=== PATIENT | female | born 1990 | race Caucasian/White ===

== ENCOUNTER 2017-12-28 08:11 | Emergency (ER) | payer BC ==
[2017-12-28 08:43] LABS: Amorphous Sediment,Urine Rare /hpf; Appearance,Urine Cloudy (Clear); Bacteria,Urine Rare /hpf; Bilirubin,Urine Negative (Negative); Blood,Urine Negative (Negative); Color,Urine Yellow; Glucose,Urine (UA) Negative (Negative); Ketones,Urine Negative (Negative); Leukocyte Esterase,Urine Negative (Negative); Mucus,Urine Few /hpf; Nitrite,Urine Negative (Negative); PH, Urine 5.5 (5.0-8.0); Protein,Urine Trace (Negative); Specific Gravity,Urine 1.024 (1.001-1.035); Squamous Epithelial Cell,Urine 4 /hpf (0-4); Urobilinogen,Urine <2.0 mg/dL (<2.0); WBC,Urine 2 /hpf (0-5)
[2017-12-28 08:49] LABS: Basophils # (A) 0.1 k/uL (0-0.2); Basophils % (A) 1 %; Eosinophils # (A) 0.2 k/uL (0-0.7); Eosinophils % (A) 2 %; HCT 42.1 % (34.0-46.0); HGB 14.7 gm/dL (11.4-16.0); Lymphocytes # (A) 2.7 k/uL (1.0-4.8); Lymphocytes % (A) 28 %; MCH 28.5 pg (25.0-35.0); MCV 81.6 fL (80.0-100.0); Mean Platelet Volume 7.5; Monocytes # (A) 0.3 k/uL (0-1.0); Monocytes % (A) 4 %; Neutrophils # (A) 6.2 k/uL (1.3-7.7); Neutrophils % (A) 64 %; Platelet Count 264 k/uL (150-450); RBC 5.16 m/uL (3.80-5.40); RDW 12.4 % (11.5-15.5); WBC 9.6 k/uL (3.8-10.6)
--- NOTE | 2017-12-28 08:51 | ED ---
General Adult HPI - General Chief complaint: Abdominal Pain Stated complaint: abdominal and back pain Time Seen by Provider: 12/28/17 08:22 Source: patient, RN notes reviewed Mode of arrival: ambulatory Limitations: no limitations - History of Present Illness Initial comments: Patient 27-year-old female significant past medical history for IBS, presenting today with a chief complaint of abdominal discomfort. Patient does admit that she's had similar symptoms in the past but seems to just be increasingly getting worse. She states pain over the last several months. She states that pain is worse than the left side of the abdomen also feels some pain to the left side of the back at times. Patient does admit to loose bowel movements. Denies any signs of blood. Does not that she feels nauseated at times but no vomiting. States she follows up through family doctors never seen a specialist for this. She states that she's used Imodium in the past along with Bentyl with some relief the symptoms. Patient denies any recent fever, chills, shortness of breath, chest pain, back pain, vomiting, numbness or tingling, dysuria or hematuria, headaches or visual changes, or any other complaints. - Related Data Home Medications Medication Instructions Recorded Confirmed Norgestimate-Ethinyl Estradiol 1 tab PO HS 07/06/16 12/28/17 [Sprintec 28 Day Tablet] Previous Rx's Medication Instructions Recorded Dicyclomine [Bentyl] 20 mg PO QID #20 tablet 12/28/17 Allergies Allergy/AdvReac Type Severity Reaction Status Date / Time No Known Allergies Allergy Verified 12/28/17 08:24 Review of Systems ROS Statement: Those systems with pertinent positive or pertinent negative responses have been documented in the HPI. ROS Other: All systems not noted in ROS Statement are negative. Past Medical History Past Medical History: No Reported History History of Any Multi-Drug Resistant Organisms: None Reported Past Surgical History: Cholecystectomy Past Psychological History: Anxiety Smoking Status: Never smoker Past Alcohol Use History: None Reported Past Drug Use History: None Reported General Exam - General Exam Comments Initial Comments: General: The patient is awake and alert, in no distress, and does not appear acutely ill. Eye: Pupils are equal, round and reactive to light, extra-ocular movements are intact. No nystagmus. There is normal conjunctiva bilaterally. No signs of icterus. Ears, nose, mouth and throat: There are moist mucous membranes and no oral lesions. Neck: The neck is supple, there is no tenderness or JVD. Cardiovascular: There is a regular rate and rhythm. No murmur, rub or gallop is appreciated. Respiratory: Lungs are clear to auscultation, respirations are non-labored, breath sounds are equal. No wheezes, stridor, rales, or rhonchi. Gastrointestinal: Normal appearance the abdomen. Abdomen soft on palpation. Mild discomfort left side on palpation. Mild left CVA tenderness. No rebound tenderness. No guarding. Musculoskeletal: Normal ROM, no tenderness. Strength 5/5. Sensation intact. Pulses equal bilaterally 2+. Neurological: A&O x 3. CN II-XII intact, There are no obvious motor or sensory deficits. Coordination appears grossly intact. Speech is normal. Skin: Skin is warm and dry and no rashes or lesions are noted. Psychiatric: Cooperative, appropriate mood & affect, normal judgment. Limitations: no limitations Course Vital Signs 12/28/17 08:14 Temperature 97.8 F Pulse Rate 104 H Respiratory 20 Rate Blood Pressure 140/92 O2 Sat by Pulse 100 Oximetry Medical Decision Making - Medical Decision Making X-rays have been reviewed are unremarkable. Patient's labs are within normal limits. Patient's symptoms have been a slow progression over the last few months. She admits to history of IBS. Does not see GI. In the past she's used Bentyl with some relief the symptoms. At this time options were discussed about CAT scan. Patient will be discharged home to follow-up with her family doctor and GI. Her abdomen is soft on palpation. Vitals are stable. Will be given a prescription of Bentyl to use for symptoms. Advised return if any symptoms increase worsen. - Lab Data Result diagrams: 12/28/17 08:38 12/28/17 08:38 Lab Results 12/28/17 12/28/17 12/28/17 Range/Units 08:30 08:30 08:38 WBC 9.6 (3.8-10.6) k/uL RBC 5.16 (3.80-5.40) m/uL Hgb 14.7 (11.4-16.0) gm/dL Hct 42.1 (34.0-46.0) % MCV 81.6 (80.0-100.0) fL MCH 28.5 (25.0-35.0) pg MCHC 35.0 (31.0-37.0) g/dL RDW 12.4 (11.5-15.5) % Plt Count 264 (150-450) k/uL Neutrophils % 64 % Lymphocytes % 28 % Monocytes % 4 % Eosinophils % 2 % Basophils % 1 % Neutrophils # 6.2 (1.3-7.7) k/uL Lymphocytes # 2.7 (1.0-4.8) k/uL Monocytes # 0.3 (0-1.0) k/uL Eosinophils # 0.2 (0-0.7) k/uL Basophils # 0.1 (0-0.2) k/uL Sodium (137-145) mmol/L Potassium (3.5-5.1) mmol/L Chloride (98-107) mmol/L Carbon Dioxide (22-30) mmol/L Anion Gap mmol/L BUN (7-17) mg/dL Creatinine (0.52-1.04) mg/dL Est GFR (CKD-EPI)AfAm (>60 ml/min/1.73 sqM) Est GFR (CKD-EPI)NonAf (>60 ml/min/1.73 sqM) Glucose (74-99) mg/dL Calcium (8.4-10.2) mg/dL Total Bilirubin (0.2-1.3) mg/dL AST (14-36) U/L ALT (9-52) U/L Alkaline Phosphatase (38-126) U/L Total Protein (6.3-8.2) g/dL Albumin (3.5-5.0) g/dL Lipase (23-300) U/L Urine Color Yellow Urine Appearance Cloudy H (Clear) Urine pH 5.5 (5.0-8.0) Ur Specific [place] 1.024 (1.001-1.035) Urine Protein Trace H (Negative) Urine Glucose (UA) Negative (Negative) Urine Ketones Negative (Negative) Urine Blood Negative (Negative) Urine Nitrite Negative (Negative) Urine Bilirubin Negative (Negative) Urine Urobilinogen <2.0 (<2.0) mg/dL Ur Leukocyte Esterase Negative (Negative) Urine WBC 2 (0-5) /hpf Ur Squamous Epith Cells 4 (0-4) /hpf Amorphous Sediment Rare H (None) /hpf Urine Bacteria Rare H (None) /hpf Urine Mucus Few H (None) /hpf Urine HCG, Qual Not Detected (Not Detectd) 12/28/17 Range/Units 08:38 WBC (3.8-10.6) k/uL RBC (3.80-5.40) m/uL Hgb (11.4-16.0) gm/dL Hct (34.0-46.0) % MCV (80.0-100.0) fL MCH (25.0-35.0) pg MCHC (31.0-37.0) g/dL RDW (11.5-15.5) % Plt Count (150-450) k/uL Neutrophils % % Lymphocytes % % Monocytes % % Eosinophils % % Basophils % % Neutrophils # (1.3-7.7) k/uL Lymphocytes # (1.0-4.8) k/uL Monocytes # (0-1.0) k/uL Eosinophils # (0-0.7) k/uL Basophils # (0-0.2) k/uL Sodium 142 (137-145) mmol/L Potassium 4.4 (3.5-5.1) mmol/L Chloride 104 (98-107) mmol/L Carbon Dioxide 27 (22-30) mmol/L Anion Gap 11 mmol/L BUN 12 (7-17) mg/dL Creatinine 0.76 (0.52-1.04) mg/dL Est GFR (CKD-EPI)AfAm >90 (>60 ml/min/1.73 sqM) Est GFR (CKD-EPI)NonAf >90 (>60 ml/min/1.73 sqM) Glucose 105 H (74-99) mg/dL Calcium 9.6 (8.4-10.2) mg/dL Total Bilirubin 0.7 (0.2-1.3) mg/dL AST 32 (14-36) U/L ALT 25 (9-52) U/L Alkaline Phosphatase 97 (38-126) U/L Total Protein 7.8 (6.3-8.2) g/dL Albumin 4.4 (3.5-5.0) g/dL Lipase 133 (23-300) U/L Urine Color Urine Appearance (Clear) Urine pH (5.0-8.0) Ur Specific [place] (1.001-1.035) Urine Protein (Negative) Urine Glucose (UA) (Negative) Urine Ketones (Negative) Urine Blood (Negative) Urine Nitrite (Negative) Urine Bilirubin (Negative) Urine Urobilinogen (<2.0) mg/dL Ur Leukocyte Esterase (Negative) Urine WBC (0-5) /hpf Ur Squamous Epith Cells (0-4) /hpf Amorphous Sediment (None) /hpf Urine Bacteria (None) /hpf Urine Mucus (None) /hpf Urine HCG, Qual (Not Detectd) Disposition Clinical Impression: Acute diarrhea Disposition: HOME SELF-CARE Condition: Good Instructions: Acute Diarrhea (ED) Additional Instructions: Please use medication as discussed. Please follow-up with GI/family doctor in the next 2 days of symptoms have not improved. Please return to emergency room if the symptoms increase or worsen or for any other concerns. Prescriptions: Dicyclomine [Bentyl] 20 mg PO QID #20 tablet Referrals: Shannon Herbert MD [Primary Care Provider] - 1-2 days Davidson Blackwell MD [STAFF PHYSICIAN] - 1-2 days Time of Disposition: 09:45
[2017-12-28 08:58] LABS: Albumin 4.4 g/dL (3.5-5.0); Anion Gap 11 mmol/L; Calcium 9.6 mg/dL (8.4-10.2); Carbon Dioxide 27 mmol/L (22-30); Chloride 104 mmol/L (98-107); Glucose 105 mg/dL (74-99); Lipase 133 U/L (23-300); Sodium 142 mmol/L (137-145); Total Bilirubin 0.7 mg/dL (0.2-1.3); Total Protein 7.8 g/dL (6.3-8.2)
[2017-12-28 09:03] LABS: ALT 25 U/L (9-52); AST 32 U/L (14-36); Alkaline Phosphatase 97 U/L (38-126); Blood Urea Nitrogen 12 mg/dL (7-17); Potassium 4.4 mmol/L (3.5-5.1)
--- NOTE | 2017-12-28 09:25 | XR ---
EXAMINATION TYPE: XR KUB DATE OF EXAM: 12/28/2017 COMPARISON: 07/06/2016 HISTORY: Pain TECHNIQUE: One view abdominal series FINDINGS: The osseous structures are intact. The bowel gas pattern is nonspecific. Lung bases are clear. Surg ical clips in the right upper quadrant are noted. IMPRESSION: 1. Nonspecific abdomen.
[2017-12-28 09:57] VITALS: BP 126/78; PULSE 78; RESP 16; TEMP 98
== END 2017-12-28 09:56 | disposition home or self-care (01) ==
LOC: EC 08:11
DX: R19.7 Diarrhea, unspecified (principal); R10.9 Unspecified abdominal pain; M54.9 Dorsalgia, unspecified; R11.0 Nausea; Z79.3 Long term (current) use of hormonal contraceptives; Z90.49 Acquired absence of other specified parts of digestive tract
CPT/HCPCS: 36415; 74018; 80053; 81001; 81025; 83690; 85025; 99284

== ENCOUNTER → 2020-04-16 | Outpatient (CLI) | payer BC ==
[2020-04-16 11:25] LABS: HGB 12.5 gm/dL (11.4-16.0); Hypochromasia Slight; MCH 27.5 pg (25.0-35.0); MCV 85.8 fL (80.0-100.0); Mean Platelet Volume 8.5; Platelet Count 238 k/uL (150-450); RBC 4.54 m/uL (3.80-5.40); RDW 13.9 % (11.5-15.5); WBC 14.9 k/uL (3.8-10.6)
== END | disposition home or self-care (01) ==
LOC: LABWHC1 09:58
PROVIDERS: ATTEND Obstetrics & Gynecology
DX: Z34.02 Encounter for supervision of normal first pregnancy, second trimester (principal)
CPT/HCPCS: 36415; 82950; 85027

== ENCOUNTER → 2020-04-23 | Outpatient (CLI) | payer BC ==
[2020-04-23 12:36] LABS: Glucose 3 Hour, Gest 130 mg/dL
== END | disposition home or self-care (01) ==
LOC: LABWHC1 07:42
PROVIDERS: ATTEND Obstetrics & Gynecology
DX: O99.810 Abnormal glucose complicating pregnancy (principal); Z3A.00 Weeks of gestation of pregnancy not specified
CPT/HCPCS: 36415; 82951; 82952

== ENCOUNTER → 2020-05-07 | Outpatient (CLI) | payer BC ==
[2020-05-07 13:29] VITALS: BMI 36.9
== END | disposition home or self-care (01) ==
LOC: DBWHC3 08:59
PROVIDERS: ATTEND Obstetrics & Gynecology
DX: O24.419 Gestational diabetes mellitus in pregnancy, unspecified control (principal); Z3A.00 Weeks of gestation of pregnancy not specified
CPT/HCPCS: G0108 ×2

== ENCOUNTER → 2020-06-09 | Outpatient (CLI) | payer BC ==
[2020-06-09 16:52] LABS: Appearance,Urine Clear (Clear); Bacteria,Urine Rare /hpf; Bilirubin,Urine Negative (Negative); Blood,Urine Negative (Negative); Color,Urine Light Yellow; Glucose,Urine (UA) Negative (Negative); Ketones,Urine Negative (Negative); Leukocyte Esterase,Urine Moderate (Negative); Mucus,Urine Rare /hpf; Nitrite,Urine Negative (Negative); Protein,Urine Negative (Negative); RBC,Urine 1 /hpf (0-5); Specific Gravity,Urine 1.012 (1.001-1.035); Squamous Epithelial Cell,Urine 3 /hpf (0-4); Urobilinogen,Urine <2.0 mg/dL (<2.0); WBC,Urine 5 /hpf (0-5)
[2020-06-09 17:09] LABS: Creatinine,Urine Random 69.3 mg/dL
[2020-06-09 17:10] LABS: Protein/Creatinine Ratio,Urine 0.146
[2020-06-09 17:26] LABS: Basophils % (A) 0 %; Eosinophils # (A) 0.1 k/uL (0-0.7); Eosinophils % (A) 1 %; HCT 35.5 % (34.0-46.0); HGB 11.4 gm/dL (11.4-16.0); Lymphocytes # (A) 1.8 k/uL (1.0-4.8); Lymphocytes % (A) 16 %; MCH 25.9 pg (25.0-35.0); MCHC 32.2 g/dL (31.0-37.0); Mean Platelet Volume 9.8; Monocytes # (A) 0.6 k/uL (0-1.0); Monocytes % (A) 5 %; Neutrophils # (A) 8.9 k/uL (1.3-7.7); Neutrophils % (A) 77 %; Platelet Count 196 k/uL (150-450); RBC 4.42 m/uL (3.80-5.40); RDW 13.9 % (11.5-15.5); WBC 11.6 k/uL (3.8-10.6)
[2020-06-09 17:30] LABS: ALT 11 U/L (4-34); AST 23 U/L (14-36); African American GFR (CKD) >90 (>60 ml/min/1.73 sqM); Blood Urea Nitrogen 7 mg/dL (7-17); Non-African American GFR(CKD) >90 (>60 ml/min/1.73 sqM); Uric Acid 4.3 mg/dL (3.7-7.4)
[2020-06-09 17:31] LABS: LDH 455 U/L (313-618)
[2020-06-09 17:48] LABS: MCV 80.3 fL (80.0-100.0)
[2020-06-09 18:22] VITALS: BP 140/84; PULSE 115; RESP 16; TEMP 97.6
--- NOTE | 2020-06-10 06:39 | P.MSEPDOC ---
Presenting Problems - Arrival Data Date of Arrival on Unit: 06/09/20 Time of Arrival on Unit: 15:52 Mode of Transport: Ambulatory - Complaint OB-Reason for Admission/Chief Complaint: PIH Medical History - Information : 1 Para: 0 Term: 0 : 0 Abortions: Spontaneous or Elective: 0 Number of Living Children: 0 - Gestational Age Gestational Age by THERESA (wks/days): 34 Weeks and 3 Days - History Complications: GDM Review of Systems - Review of Systems Constitutional: No problems Breast: No problems ENT: No problems Cardiovascular: No problems Respiratory: No problems Gastrointestinal: No problems Genitourinary: No problems Musculoskeletal: No problems Neurological: No problems Skin: No problems Vital Signs - Temperature Temperature: 97.6 F Temperature Source: Temporal Artery Scan - Pulse Right Sitting Pulse Rate: 115 Pulse Assessment Method: Auscultation - Respirations Respiratory Rate: 16 Oxygen Delivery Method: Room Air - Blood Pressure Right Arm Blood Pressure: 140/84 Blood Pressure Mean: 102 Blood Pressure Source: Automatic Cuff Medical Screen Scoring (Pre) - Cervical Exam Dilation: Exam Deferred Effacement: Exam Deferred - Uterine Contractions Frequency: > 5 minutes apart = 1 - Maternal Vital Signs Maternal Temperature: N/A Maternal Blood Pressure: Systolic >139 = 2 Signs of Preeclampsia: N/A Maternal Respirations: N/A - Maternal Trauma Maternal Trauma: N/A - Assessment - Baby A Baseline FHR: 150 Heart Rate - NICHD Category: Category I (Normal) = 0 NST: Reactive - Total Score - Baby A Total Score - Baby A: 3 - Total Score - Baby B Total Score - Baby B: 3 - Total Score - Baby C Total Score - Baby C: 3 - Level of Risk - Baby A Level of Risk - Baby A: Low (0-5) - Level of Risk - Baby B Level of Risk - Baby B: Low (0-5) - Level of Risk - Baby C Level of Risk - Baby C: Low (0-5) Physician Notification (Pre) - Physician Notified Physician Notified Date: 06/09/20 Physician Notified Time: 17:54 New Order Received: Yes (d/c home) - Notification Comment Comment: [facility] orders per dr. calzada, d/c per dr. ferguson Disposition - Disposition OB Disposition: Discharge to home, Written follow up instructions reviewed Discharge Date: 06/09/20 Discharge Time: 18:05 I agree with the RN Medical Screening Exam: Yes Risk & Benefit of care provided described in d/c instruction: Yes Diagnosis: GESTATIONAL HTN W/O SIGNIFICANT PROTEINURIA, THIRD TRIMESTER (No evidence of preeclampsia or gestational hypertension at this time.)
== END | disposition home or self-care (01) ==
LOC: FBPOP 15:52
PROVIDERS: ATTEND Obstetrics & Gynecology
DX: O13.3 Gestational [pregnancy-induced] hypertension without significant proteinuria, third trimester (principal); Z3A.34 34 weeks gestation of pregnancy
CPT/HCPCS: 59025; 81001; 82565; 82570; 83615; 84156; 84450; 84460; 84520; 84550; 85025; 99213

== ENCOUNTER 2020-06-22 15:00 | Observation (INO) | payer BC ==
[2020-06-22 15:24] LABS: Appearance,Urine Clear (Clear); Bacteria,Urine Occasional /hpf; Bilirubin,Urine Negative (Negative); Blood,Urine Large (Negative); Color,Urine Light Red; Glucose,Urine (UA) Negative (Negative); Ketones,Urine Negative (Negative); Leukocyte Esterase,Urine Small (Negative); Mucus,Urine Rare /hpf; Nitrite,Urine Negative (Negative); PH, Urine 5.5 (5.0-8.0); Protein,Urine 1+ (Negative); RBC,Urine >182 /hpf (0-5); Specific Gravity,Urine 1.016 (1.001-1.035); Squamous Epithelial Cell,Urine 9 /hpf (0-4); Urobilinogen,Urine <2.0 mg/dL (<2.0); WBC,Urine 85 /hpf (0-5)
[2020-06-22 17:02] LABS: Basophils % (A) 0 %; Eosinophils % (A) 0 %; HCT 37.8 % (34.0-46.0); HGB 12.2 gm/dL (11.4-16.0); Lymphocytes % (A) 19 %; MCH 25.8 pg (25.0-35.0); MCHC 32.3 g/dL (31.0-37.0); MCV 79.7 fL (80.0-100.0); Mean Platelet Volume 11.1; Monocytes # (A) 0.4 k/uL (0-1.0); Monocytes % (A) 4 %; Neutrophils # (A) 7.7 k/uL (1.3-7.7); Neutrophils % (A) 74 %; Platelet Count 179 k/uL (150-450); RBC 4.74 m/uL (3.80-5.40); RDW 14.1 % (11.5-15.5); WBC 10.4 k/uL (3.8-10.6)
[2020-06-22 17:10] LABS: ALT 10 U/L (4-34); AST 21 U/L (14-36); African American GFR (CKD) >90 (>60 ml/min/1.73 sqM); Blood Urea Nitrogen 8 mg/dL (7-17); LDH 515 U/L (313-618); Non-African American GFR(CKD) >90 (>60 ml/min/1.73 sqM); Uric Acid 4.7 mg/dL (3.7-7.4)
[2020-06-22 17:12] LABS: Protein/Creatinine Ratio,Urine 0.692
--- NOTE | 2020-06-22 17:45 | P.HPOB ---
History of Present Illness H&P Date: 06/22/20 Chief Complaint: Hypertension This patient is a pleasant 29-year-old 1 para 0 female estimated date of confinement 07/18/2020 estimated gestational age 36-2/7 weeks gestation whose E admitted for observation secondary to gestational hypertension. History is such that she has been watched closely for her blood pressure because she did have some elevated blood pressure beginning at around 35 weeks. Previous preeclampsia evaluation was negative. Patient presented to the office today her initial blood pressure was 160/92. Patient denies headache visual changes or any signs or symptoms of preeclampsia. Blood pressure here in labor and delivery shows a to be 118/75-144/88. Repeat preeclampsia labs are negative. She does have some blood in her urine but this is secondary to her exam in the office. otherwise has been complicated by insulin-dependent gestational diabetes which is been managed by Dr. Saenz. Patient has had excellent glucose control. testing has been normal. Review of Systems Genitourinary: Reports Menstruation: Reports amenorrhea Past Medical History Past Medical History: No Reported History Additional Past Medical History / Comment(s): Gestational diabetes History of Any Multi-Drug Resistant Organisms: None Reported Past Surgical History: Cholecystectomy Past Anesthesia/Blood Transfusion Reactions: No Reported Reaction Past Psychological History: No Psychological Hx Reported Smoking Status: Never smoker Past Alcohol Use History: None Reported Past Drug Use History: None Reported Medications and Allergies Home Medications Medication Instructions Recorded Confirmed Type 78/Iron/Folate 1/Dha 1 each PO DAILY 05/07/20 06/22/20 History [Prenate Dha Softgel] Insulin Detemir (Levemir) [Levemir] 25 units SQ DAILY 06/09/20 06/22/20 History Allergies Allergy/AdvReac Type Severity Reaction Status Date / Time No Known Allergies Allergy Verified 06/22/20 15:06 Exam Vital Signs Temp Pulse Resp BP Pulse Ox 06/22/20 15:45 140/81 06/22/20 15:40 120/76 06/22/20 15:35 118/75 06/22/20 15:30 122/78 06/22/20 15:25 145/88 06/22/20 15:15 144/88 06/22/20 15:07 98.7 F 124 H 18 141/87 98 Intake and Output 06/22/20 06/22/20 06/22/20 06:59 14:59 22:59 Other: Weight 104.78 kg - OBG Physical Exam Abdomen: bowel sounds normal, no diffuse tenderness, no bruit present, no guarding noted, no hepatomegaly, no splenomegaly, no mass Vulva: both: normal Vagina: normal moisture, no discharge Cervix: no lesion (Cervix the office is 2-3 cm and soft she did have some bleeding from her exam.), no discharge Uterus: enlarged (Fundal height is 37 cm) Results Result Diagrams: 06/22/20 15:07 06/22/20 17:03 Abnormal Lab Results - Last 24 Hours (Table) 06/22/20 06/22/20 Range/Units 15:07 15:16 MCV 79.7 L (80.0-100.0) fL Urine Protein 1+ H (Negative) Urine Blood Large H (Negative) Ur Leukocyte Esterase Small H (Negative) Urine RBC >182 H (0-5) /hpf Urine WBC 85 H (0-5) /hpf Ur Squamous Epith Cells 9 H (0-4) /hpf Urine Bacteria Occasional H (None) /hpf Urine Mucus Rare H (None) /hpf Assessment and Plan Assessment: This is a pleasant 29-year-old 1 para 0 female 36-2/7 weeks gestation who is being admitted for observation for gestational hypertension. This time we have no evidence of preeclampsia and blood pressures do appear reassuring on bed rest. I did have a long discussion with the patient and her in the understand send she's had some elevated blood pressures at this time without evidence of preeclampsia, current recommendations proceed with delivery at 37 weeks to be early next week. Plan at this point is to admit this patient for close observation. Her blood pressures remain satisfactory overnight and then would be able to discharge home for close outpatient observation and delivery next week. heart tones are category 1. This point there is no evidence of maternal or compromise. (1) 36 weeks gestation of Current Visit: Yes Status: Acute Code(s): Z3A.36 - 36 WEEKS GESTATION OF SNOMED Code(s): 25224934 (2) Gestational hypertension Current Visit: Yes Status: Acute Code(s): O13.9 - GESTATIONAL HTN W/O SIGNIFICANT PROTEINURIA, UNSP TRIMESTER SNOMED Code(s): 255951816 (3) Gestational diabetes Current Visit: Yes Status: Acute Code(s): O24.419 - GESTATIONAL DIABETES MELLITUS IN , UNSP CONTROL SNOMED Code(s): 66001961
--- NOTE | 2020-06-22 17:48 | P.MSEPDOC ---
Presenting Problems - Arrival Data Date of Arrival on Unit: 06/22/20 Time of Arrival on Unit: 15:00 Mode of Transport: Ambulatory - Complaint OB-Reason for Admission/Chief Complaint: PIH, Diabetes Comment: insuliln gdm ([place]er), b/p at office 160/92, deneis headache. blurred vision, epig pain, slight edema of feet and lower legs, dtr bialt patellar of 1+ with clonus absent. here for pih labs and b/p series. 2.5 cm at office. bleeding from vag exam noted from office per dr calzada. urine bloody upon arrival. ua obtained and sent to lab with blood. Medical History - Information : 1 Para: 0 Term: 0 : 0 Abortions: Spontaneous or Elective: 0 Number of Living Children: 0 - Gestational Age Gestational Age by THERESA (wks/days): 36 Weeks and 2 Days - History Complications: Preeclampsia, GDM Review of Systems - Review of Systems Constitutional: No problems Breast: No problems ENT: No problems Cardiovascular: No problems Respiratory: No problems Gastrointestinal: No problems Genitourinary: No problems Musculoskeletal: No problems Neurological: No problems Skin: No problems Vital Signs - Temperature Temperature: 98.7 F Temperature Source: Oral - Pulse Right Brachial Pulse Rate: 124 Pulse Assessment Method: Automatic Cuff - Respirations Respiratory Rate: 18 Oxygen Delivery Method: Room Air O2 Sat by Pulse Oximetry: 98 - Blood Pressure Right Arm Blood Pressure: 140/81 Blood Pressure Mean: 100 Blood Pressure Source: Automatic Cuff Medical Screen Scoring (Pre) - Cervical Exam Dilation: 1-3 cm = 1 Membranes: Intact - Uterine Contractions Frequency: N/A Duration: N/A Intensity: N/A - Maternal Vital Signs Maternal Temperature: N/A Maternal Blood Pressure: Systolic >139 = 2 Maternal Respirations: N/A - Maternal Trauma Maternal Trauma: N/A - Assessment - Baby A Baseline FHR: 150 Heart Rate - NICHD Category: Category I (Normal) = 0 NST: Reactive Position: N/A Station: N/A - Total Score - Baby A Total Score - Baby A: 3 - Total Score - Baby B Total Score - Baby B: 3 - Total Score - Baby C Total Score - Baby C: 3 - Level of Risk - Baby A Level of Risk - Baby A: Low (0-5) - Level of Risk - Baby B Level of Risk - Baby B: Low (0-5) - Level of Risk - Baby C Level of Risk - Baby C: Low (0-5) Physician Notification (Pre) - Physician Notified Physician Notified Date: 06/22/20 Disposition - Disposition OB Disposition: Observe I agree with the RN Medical Screening Exam: Yes Risk & Benefit of care provided described in d/c instruction: Yes Diagnosis: GESTATIONAL HTN W/O SIGNIFICANT PROTEINURIA, THIRD TRIMESTER
[2020-06-22] MEDS ORDERED: ACETAMINOPHEN TAB 325 MG TAB PO STA ×2 (19:50→22:38)
[2020-06-22 20:33] LABS: Glucose,Whole Blood 108 mg/dL (75-99)
[2020-06-23 06:31] LABS: Glucose,Whole Blood 80 mg/dL (75-99)
--- NOTE | 2020-06-23 06:34 | P.PN ---
Progress Note - Text Progress Note Date: 06/23/20 Hospital day #2. Patient is 36-3/7 weeks gestation. Blood pressures overnight were very good 130s over 70s to 80s. Nonstress test was reactive. Patient's without complaints. Patient's protein creatinine ratio was elevated however she did have significant amount of blood in her urine from her exam this is known to alter the protein creatinine ratio. Plan at this time as patient appears to be stable for discharge home follow up with me tomorrow for blood pressure check repeat nonstress test. Plan continued close observation delivery at 37 weeks to be scheduled for next week. Patient I have discussed this plan and she is agreeable.
--- NOTE | 2020-06-23 06:37 | P.DS ---
Providers Date of admission: 06/22/20 17:13 Expected date of discharge: 06/23/20 Attending physician: Chidi Taylor Primary care physician: Stated None - Discharge Diagnosis(es) (1) 36 weeks gestation of Current Visit: Yes Status: Acute (2) Gestational hypertension Current Visit: Yes Status: Acute (3) Gestational diabetes Current Visit: Yes Status: Acute Hospital Course: Please see dictated H&P for intimate details of this patient's admission. Brief summary this pleasant 29-year-old 1 para 0 female 36-2/7 weeks gestation admitted for evaluation of gestational hypertension. Preeclampsia labs are negative with exception of elevated protein creatinine ratio which is thought to be secondary to her microscopic hematuria. Patient observed overnight blood pressures all remaining acceptable. Antepartum testing is normal. Patient's discharge home follow up with me tomorrow for an NST repeat blood pressure check and then continued close antepartum surveillance and delivery next week. Patient Condition at Discharge: Good Plan - Discharge Summary New Discharge Prescriptions: No Action 78/Iron/Folate 1/Dha [Prenate Dha Softgel] 1 each PO DAILY Insulin Detemir (Levemir) [Levemir] 25 units SQ DAILY Discharge Medication List 78/Iron/Folate 1/Dha [Prenate Dha Softgel] 1 each PO DAILY 05/07/20 [History] Insulin Detemir (Levemir) [Levemir] 25 units SQ DAILY 06/09/20 [History] Follow up Appointment(s)/Referral(s): Chidi Taylor MD [STAFF PHYSICIAN] - 06/24/20 Patient Instructions/Handouts: Hypertension During (DC) Discharge Disposition: HOME SELF-CARE
[2020-06-23] MEDS ORDERED: INSULIN DETEMIR (LEVEMIR) 100 UNIT/ML SYR SQ SCH (07:00)
[2020-06-23 08:27] VITALS: BP 136/86; PULSE 79; RESP 18; TEMP 98
== END 2020-06-23 09:00 | disposition home or self-care (01) ==
LOC: FBPOP 15:00 → 4FBP 17:13
PROVIDERS: ADMIT Obstetrics & Gynecology; ATTEND Obstetrics & Gynecology
DX: O13.4 Gestational [pregnancy-induced] hypertension without significant proteinuria, complicating childbirth (principal); O24.414 Gestational diabetes mellitus in pregnancy, insulin controlled; R31.29 Other microscopic hematuria; Z3A.36 36 weeks gestation of pregnancy; Z90.49 Acquired absence of other specified parts of digestive tract
CPT/HCPCS: 82570; 84156; 82565; 83615; 84450; 84460; 84520; 84550; 85025; 81001; G0378 ×2

== ENCOUNTER 2020-06-26 09:52 | Outpatient (CLI) | payer BC ==
[2020-06-26 09:59] LABS: Glucose,Whole Blood 89 mg/dL (75-99)
== END 2020-06-26 10:42 | disposition home or self-care (01) ==
LOC: FBPOP 09:52
PROVIDERS: ATTEND Obstetrics & Gynecology
DX: O13.9 Gestational [pregnancy-induced] hypertension without significant proteinuria, unspecified trimester (principal); Z3A.00 Weeks of gestation of pregnancy not specified
CPT/HCPCS: 59025

== ENCOUNTER 2020-06-29 05:49 | Inpatient (IN) | payer BC ==
--- NOTE | 2020-06-28 16:27 | P.HPOB ---
History of Present Illness H&P Date: 06/28/20 Chief Complaint: Gestational hypertension This patient is a pleasant 29 yr old female EDC 07/18/2020 estimated gestational age 37 2/7 weeks who presents for delivery secondary to gestational hypertension. She initially began having some elevated BP's at 35 weeks. Pre-e clampsia labs were normal on 2 occasions. She most recently was hospitalized on 06/23 for observation. Since she has had 2 blood pressures >140/90, per current recommendations she is advised to be induced for gestational hypertension. has also been complicated by insulin dependent gestational diabetes with good control (Dr. Perez). testing has been normal. Review of Systems Genitourinary: Reports Menstruation: Reports amenorrhea Past Medical History Past Medical History: No Reported History Additional Past Medical History / Comment(s): Gestational diabetes; gestational hypertension. History of Any Multi-Drug Resistant Organisms: None Reported Past Surgical History: Cholecystectomy Past Anesthesia/Blood Transfusion Reactions: No Reported Reaction Past Psychological History: No Psychological Hx Reported Smoking Status: Never smoker Past Alcohol Use History: None Reported Past Drug Use History: None Reported Medications and Allergies Home Medications Medication Instructions Recorded Confirmed Type 78/Iron/Folate 1/Dha 1 each PO DAILY 05/07/20 06/26/20 History [Prenate Dha Softgel] Insulin Detemir (Levemir) [Levemir] 25 units SQ DAILY 06/09/20 06/26/20 History Allergies Allergy/AdvReac Type Severity Reaction Status Date / Time No Known Allergies Allergy Verified 06/22/20 15:06 Exam - OBG Physical Exam Abdomen: bowel sounds normal, no diffuse tenderness, no bruit present, no guarding noted, no hepatomegaly, no splenomegaly, no mass Vulva: both: normal Vagina: normal moisture, no discharge Cervix: no lesion (Cervix in the office 2-3 cm /soft.), no discharge Uterus: enlarged (Fundal height was 38 cm.) Results blood work: A positive, Rubella Immune, [id number] neg, Glucola 161 with abnormal 3hr GTT. TDap given on 05/28/2020. GBS negative. Ultrasound on 06/17 showed EFW 6#5oz (75%), normal. Assessment and Plan Assessment: This patient is a pleasant 29 yr female 37 2/7 wks with gestation diabetes and gestational hypertension who is admitted for delivery. Plan is induction of labor, repeat preeclampsia labs, glucose monitoring and anticipate vaginal delivery. (1) 37 weeks gestation of Status: Acute Code(s): Z3A.37 - 37 WEEKS GESTATION OF SNOMED Code(s): 94434521 (2) Gestational hypertension Status: Acute Code(s): O13.9 - GESTATIONAL HTN W/O SIGNIFICANT PROTEINURIA, UNSP TRIMESTER SNOMED Code(s): 183509691 (3) Gestational diabetes Status: Acute Code(s): O24.419 - GESTATIONAL DIABETES MELLITUS IN , UNSP CONTROL SNOMED Code(s): 45854781
[2020-06-29] MEDS ORDERED: METHYLERGONOVINE 0.2 MG/ML 1 ML AMP IM PRN (05:58)
[2020-06-29] MEDS ORDERED: LIDOCAINE 0.5% (PF) 5 MG/ML (50 ML SDV) SQ PRN (05:58)
[2020-06-29] MEDS ORDERED: CARBOPROST TROMETHAMINE 250 MCG/ML 1 ML AMP IM PRN (05:58)
[2020-06-29] MEDS ORDERED: OXYTOCIN 10 UNIT/ML 1 ML VIAL IM PRN (05:58)
[2020-06-29] MEDS ORDERED: TERBUTALINE 1 MG/ML VIAL SQ PRN (05:58)
[2020-06-29] MEDS ORDERED: OXYTOCIN 30 UNITS/500 ML NS 30 UNIT in SALINE 1 500ML.BAG IV SCH (05:58)
[2020-06-29 05:59] LABS: Glucose,Whole Blood 102 mg/dL (75-99)
[2020-06-29] MEDS: LACTATED RINGERS 1,000 ML IV SCH ×2 (06:25→08:48)
[2020-06-29 06:26] LABS: Basophils % (A) 0 %; Eosinophils # (A) 0.2 k/uL (0-0.7); Eosinophils % (A) 1 %; HCT 37.8 % (34.0-46.0); HGB 12.4 gm/dL (11.4-16.0); Lymphocytes # (A) 2.8 k/uL (1.0-4.8); Lymphocytes % (A) 22 %; MCH 25.9 pg (25.0-35.0); MCHC 32.8 g/dL (31.0-37.0); MCV 78.9 fL (80.0-100.0); Mean Platelet Volume 10.4; Monocytes # (A) 0.6 k/uL (0-1.0); Monocytes % (A) 5 %; Neutrophils % (A) 71 %; Platelet Count 199 k/uL (150-450); RBC 4.79 m/uL (3.80-5.40); RDW 14.1 % (11.5-15.5); WBC 12.8 k/uL (3.8-10.6)
[2020-06-29 06:34] LABS: Uric Acid 5.4 mg/dL (3.7-7.4)
[2020-06-29 07:17] LABS: Glucose,Whole Blood 99 mg/dL (75-99)
[2020-06-29 08:22] LABS: Glucose,Whole Blood 95 mg/dL (75-99)
[2020-06-29] MEDS ORDERED: ROPIVACAINE 100 MG, fentaNYL (PF) 200 MCG in SODIUM CHLORIDE 0.9% 76 ML EPIDURAL ONE (09:02)
[2020-06-29 09:10] LABS: Glucose,Whole Blood 97 mg/dL (75-99)
[2020-06-29 10:15] LABS: Glucose,Whole Blood 90 mg/dL (75-99)
[2020-06-29 11:16] LABS: Glucose,Whole Blood 90 mg/dL (75-99)
[2020-06-29] MEDS ORDERED: bisacodyL 10 MG SUPP RECTAL PRN (12:28)
[2020-06-29] MEDS ORDERED: ACETAMINOPHEN TAB 325 MG TAB PO PRN (12:28)
[2020-06-29] MEDS ORDERED: SIMETHICONE 80 MG CHEWABLE PO PRN (12:28)
[2020-06-29] MEDS ORDERED: diphenhydrAMINE 50 MG/ML 1 ML VIAL IVP PRN (12:28)
[2020-06-29] MEDS ORDERED: BENZOCAINE/MENTHOL SPRAY 1 GM/SPRAY AEROSOL TOPICAL PRN (12:28)
[2020-06-29] MEDS ORDERED: diphenhydrAMINE 25 MG CAP PO PRN (12:28)
[2020-06-29] MEDS ORDERED: OXYTOCIN 20 UNITS/1000 ML NS 1,000 ML IV SCH (12:28)
[2020-06-29] MEDS ORDERED: HYDROCORTISONE 2.5% RECTAL CREAM 30 GM TUBE RECTAL PRN (12:28)
[2020-06-29] MEDS ORDERED: LANOLIN CREAM 5 GM TUBE TOPICAL PRN (12:28)
[2020-06-29] MEDS ORDERED: ZOLPIDEM 5 MG TAB PO PRN (12:28)
--- NOTE | 2020-06-29 12:31 | P.PROBDLV ---
Vaginal Delivery Note - . Vaginal Delivery Note: Normal vaginal delivery viable male infant Apgars 8 and 9 delivery time is 1207 hrs. Please see dictated H&P for intimate details of this patient's admission. In brief summary this is a pleasant 29-year-old 1 para 0 female 37-2/7 weeks gestation admitted to labor and delivery for induction of labor secondary to gestational hypertension. On admission patient is 4 cm dilated has artificial rupture membranes for clear fluid. Patient has Pitocin augmentation /induction of labor per protocol. Patient's blood sugars are checked every hour during labor secondary to gestational diabetes as well. These are normal. Patient does get an epidural 5 cm and then quickly thereafter progresses. She pushes for approximately 10 minutes and pushes the head to the perineum. Posterior perineum is supported and we have controlled delivery of the infant's head over the intact perineum. Mouth and nares are bulb suctioned. There is no evidence of a nuchal cord. With gentle downward traction we then have deliver the anterior and posterior shoulder and rest this 's body. 's presentation was occiput anterior. After delivery of the the umbilical cord is allowed to quit pulsating is then doubly clamped and cut. Does appear to be trivascular. The placenta is then spontaneously delivered intact. Estimated blood loss is 200 mL. Inspection of the perineum shows a first-degree midline laceration is repaired with 3-0 Vicryl in the usual fashion. Excellent reapproximation is noted. All counts are correct 3. There are no complications. Infant and mother are stable delivery room.
[2020-06-29] MEDS: SENNOSIDES-DOCUSATE SODIUM 1 EACH TAB PO SCH ×2 (14:34→22:34)
[2020-06-29] MEDS: IBUPROFEN 600 MG TAB PO PRN (20:08)
[2020-06-30 00:50] VITALS: TEMP 98.1
[2020-06-30] MEDS: IBUPROFEN 600 MG TAB PO PRN ×2 (02:08→11:57)
--- NOTE | 2020-06-30 06:29 | P.PNOBGVD ---
Subjective - Subjective Patient reports: Reports appetite normal, Reports voiding normally, Reports pain well controlled, Reports ambulating normally : doing well Objective - Latest Vital Signs Latest vital signs: Vital Signs Temp Pulse Resp BP Pulse Ox 06/30/20 00:00 98.1 F 104 H 16 135/92 98 06/29/20 20:00 98.2 F 91 16 128/88 96 06/29/20 17:22 98.4 F 96 18 133/78 06/29/20 14:21 92 16 128/74 06/29/20 13:57 90 16 140/73 06/29/20 13:19 98.7 F 90 16 131/71 06/29/20 13:14 100 16 132/64 06/29/20 12:51 93 16 142/79 06/29/20 12:38 98.2 F 96 16 136/72 06/29/20 12:29 98.4 F 106 H 16 135/68 Intake and Output 06/29/20 06/29/20 06/30/20 14:59 22:59 06:59 Output Total 200 200 Balance -200 -200 Output: Estimated Blood Loss 200 200 Other: # Voids 1 2 - Exam Lungs: bilateral: normal Chest: Normal S1, Normal S2 Extremities: Present: normal Abdomen: Present: normal appearance, soft Uterus: Present: normal, firm - Labs Labs: Abnormal Lab Results - Last 24 Hours (Table) 06/29/20 Range/Units 06:10 AST 37 H (14-36) U/L Lactate Dehydrogenase 908 H (313-618) U/L Assessment and Plan Assessment: day #1. Patient is feeling well without complaints. She would like to go home today. Blood pressures are 120s to 130s over 80s and occasional 92 diastolic. Laboratory evaluation yesterday showed the AST to be one point above normal. Patient's uterus is firm nontender and she is having normal lochia. Plan today is to recheck her liver function tests and CBC. These are normal on her blood pressure stayed good she would like to go home later today and follow up with me in 1 week for a blood pressure check. If she has any elevation in her liver tests or concerning blood pressures we'll keep her another day for observation. (1) 37 weeks gestation of Current Visit: No Status: Acute Code(s): Z3A.37 - 37 WEEKS GESTATION OF SNOMED Code(s): 90335756 (2) Gestational hypertension Current Visit: No Status: Acute Code(s): O13.9 - GESTATIONAL HTN W/O SIGNIFICANT PROTEINURIA, UNSP TRIMESTER SNOMED Code(s): 031051172 (3) Gestational diabetes Current Visit: No Status: Acute Code(s): O24.419 - GESTATIONAL DIABETES MELLITUS IN , UNSP CONTROL SNOMED Code(s): 45544201
[2020-06-30 07:32] LABS: Albumin 2.5 g/dL (3.5-5.0); Bilirubin, Delta 0.2 mg/dL (0.0-0.2); Bilirubin,Unconjugated 0.1 mg/dL (0.0-1.1); Total Bilirubin 0.3 mg/dL (0.2-1.3); Total Protein 5.1 g/dL (6.3-8.2)
[2020-06-30 07:35] LABS: Basophils % (A) 0 %; Eosinophils # (A) 0.1 k/uL (0-0.7); Eosinophils % (A) 1 %; HCT 30.6 % (34.0-46.0); Hypochromasia Slight; Lymphocytes # (A) 2.6 k/uL (1.0-4.8); Lymphocytes % (A) 23 %; MCH 25.9 pg (25.0-35.0); MCHC 32.3 g/dL (31.0-37.0); MCV 80.3 fL (80.0-100.0); Mean Platelet Volume 10.6; Monocytes # (A) 0.5 k/uL (0-1.0); Monocytes % (A) 5 %; Neutrophils # (A) 8.3 k/uL (1.3-7.7); Neutrophils % (A) 71 %; Platelet Count 148 k/uL (150-450); RBC 3.82 m/uL (3.80-5.40); RDW 14.3 % (11.5-15.5); WBC 11.7 k/uL (3.8-10.6)
[2020-06-30 07:51] LABS: HGB 9.9 gm/dL (11.4-16.0)
[2020-06-30] MEDS: SENNOSIDES-DOCUSATE SODIUM 1 EACH TAB PO SCH (09:34)
[2020-06-30 12:04] VITALS: BP 145/89; PULSE 89; RESP 18
== END 2020-06-30 15:40 | disposition home or self-care (01) | DRG 807 ==
LOC: 4FBP 05:49
PROVIDERS: ADMIT Obstetrics & Gynecology; ATTEND Obstetrics & Gynecology
PROC: 10907ZC Drainage of Amniotic Fluid, Therapeutic from Products of Conception, Via Natural or Artificial Opening (ICD-10-PCS; principal; 2020-06-29)
PROC: 10E0XZZ Delivery of Products of Conception, External Approach (ICD-10-PCS; principal; 2020-06-29)
PROC: 3E0R3NZ Introduction of Analgesics, Hypnotics, Sedatives into Spinal Canal, Percutaneous Approach (ICD-10-PCS; principal; 2020-06-29)
PROC: 00HU33Z Insertion of Infusion Device into Spinal Canal, Percutaneous Approach (ICD-10-PCS; principal; 2020-06-29)
PROC: 0HQ9XZZ Repair Perineum Skin, External Approach (ICD-10-PCS; principal; 2020-06-29)
DX: O13.4 Gestational [pregnancy-induced] hypertension without significant proteinuria, complicating childbirth (principal); Z37.0 Single live birth; O24.424 Gestational diabetes mellitus in childbirth, insulin controlled; O70.0 First degree perineal laceration during delivery; Z3A.37 37 weeks gestation of pregnancy; Z90.49 Acquired absence of other specified parts of digestive tract
CPT/HCPCS: 80076; 83615; 84450; 84460; 84550; 85025; 86850; 86900; 86901; 88307

== ENCOUNTER → 2021-08-22 | Outpatient (CLI) | payer BC ==
[2021-08-22 19:57] LABS: HCT 43.9 % (37.2-46.3); HGB 13.7 g/dL (12.0-15.0); MCH 27.3 pg (27.0-32.0); MCHC 31.2 g/dL (32.0-37.0); MCV 87.5 fL (80.0-97.0); Mean Platelet Volume 10.8 fL (9.5-12.2); Platelet Count 295 X 10*3/uL (140-440); RBC 5.02 X 10*6/uL (4.10-5.20); WBC 8.62 X 10*3/uL (4.50-10.00)
[2021-08-22 20:34] LABS: Hepatitis B Surface Antigen Nonreactive (Nonreactive)
[2021-08-22 20:36] LABS: African American GFR (CKD) 133.8 (60.0-200.0); Non-African American GFR(CKD) 115.4 (60.0-200.0)
[2021-08-22 23:24] LABS: HIV 2 AB Non-Reactive (Non-Reactive); HIV AB P24 Non-Reactive (Non-Reactive); HIV P24 AG Non-Reactive (Non-Reactive)
== END | disposition home or self-care (01) ==
LOC: LABWHC1 07:09
PROVIDERS: ATTEND Obstetrics & Gynecology
DX: Z34.81 Encounter for supervision of other normal pregnancy, first trimester (principal); Z3A.00 Weeks of gestation of pregnancy not specified
CPT/HCPCS: 36415; 82565; 82950; 85027; 86762; 86780; 86850; 86900; 86901; 87340; 87390

== ENCOUNTER 2022-03-27 05:50 | Inpatient (IN) | payer BC ==
[2022-03-27] MEDS ORDERED: LIDOCAINE 0.5% (PF) 5 MG/ML (50 ML SDV) SQ PRN (06:10)
[2022-03-27] MEDS ORDERED: METHYLERGONOVINE 0.2 MG/ML 1 ML AMP IM PRN (06:10)
[2022-03-27] MEDS ORDERED: CARBOPROST TROMETHAMINE 250 MCG/ML 1 ML AMP IM PRN (06:10)
[2022-03-27] MEDS ORDERED: OXYTOCIN 10 UNIT/ML 1 ML VIAL IM PRN (06:10)
[2022-03-27] MEDS ORDERED: OXYTOCIN 30 UNITS/500 ML NS 30 UNIT in SALINE 1 500ML.BAG IV SCH ×2 (06:10→12:29)
[2022-03-27] MEDS ORDERED: TERBUTALINE 1 MG/ML VIAL SQ PRN (06:10)
[2022-03-27 06:16] LABS: Glucose,Whole Blood 89 mg/dL (75-99)
[2022-03-27] MEDS: LACTATED RINGERS 1,000 ML IV SCH ×2 (06:18→07:58)
--- NOTE | 2022-03-27 06:25 | P.HPOB ---
History of Present Illness H&P Date: 03/27/22 Chief Complaint: Induction of labor secondary to insulin-dependent diabetes This patient is a pleasant 31-year-old 2 para 1 female estimated date of confinement 03/31/2022 estimated gestational age 39-3/7 weeks who presents to labor and delivery for induction of labor secondary to insulin-dependent gestational diabetes. Patient has a history of this with a previous and an early Glucola testing shows she had gestational diabetes this as well. Patient is referred to Dr. Saenz she's been on insulin with good control. is been followed with growth ultrasounds and testing. All of which is been normal. Patient now presents for delivery. Review of Systems Genitourinary: Reports Menstruation: Reports amenorrhea Past Medical History Past Medical History: No Reported History Additional Past Medical History / Comment(s): Gestational diabetes; patient had a previous vaginal delivery baby boy History of Any Multi-Drug Resistant Organisms: None Reported Past Surgical History: Cholecystectomy Additional Past Surgical History / Comment(s): 2008 Past Anesthesia/Blood Transfusion Reactions: No Reported Reaction Past Psychological History: No Psychological Hx Reported Smoking Status: Never smoker Past Alcohol Use History: None Reported Past Drug Use History: None Reported - Past Family History Father Family Medical History: Coronary Artery Disease (CAD), Hypertension Mother Family Medical History: Hypertension Sister(s) Family Medical History: Thyroid Disorder Additional Family Medical History / Comment(s): hypothyroid Medications and Allergies Home Medications Medication Instructions Recorded Confirmed Type 78/Iron/Folate 1/Dha 1 each PO DAILY 05/07/20 03/27/22 History [Prenate Dha Softgel] Insulin Detemir (Levemir) [Levemir] 65 units SQ DAILY 06/09/20 03/27/22 History Aspirin [Adult Low Dose Aspirin EC] 1 tab PO DAILY 03/27/22 03/27/22 History Insulin Regular, Human [Novolin R 25 units SQ DAILY 03/27/22 03/27/22 History Flexpen] Sertraline [Zoloft] 1 tab PO DAILY 03/27/22 03/27/22 History Allergies Allergy/AdvReac Type Severity Reaction Status Date / Time No Known Allergies Allergy Verified 06/29/20 05:56 Exam Intake and Output 03/26/22 03/26/22 03/27/22 14:59 22:59 06:59 Other: Weight 103.873 kg - OBG Physical Exam Abdomen: bowel sounds normal, no diffuse tenderness, no bruit present, no guarding noted, no hepatomegaly, no splenomegaly, no mass Vulva: both: normal Vagina: normal moisture, no discharge Cervix: no lesion (Cervix is 3-4 cm dilated 50% effaced), no discharge Uterus: enlarged (Uterus is 38 cm) Results blood work shows she is A positive, rubella immune, RPR nonreactive, hepatitis B negative, HIV is nonreactive, group B strep was negative, first trimester Glucola was 159, ultrasounds of shown normal anatomy and growth. Assessment and Plan Assessment: This is a pleasant 31-year-old 2 para 1 female 39-3/7 weeks gestation who is admitted to labor and delivery for induction of labor secondary to insulin-dependent gestational diabetes. Plan is induction of labor and anticipate vaginal delivery. (1) 39 weeks gestation of Current Visit: Yes Status: Acute Code(s): Z3A.39 - 39 WEEKS GESTATION OF SNOMED Code(s): 24634801 (2) Gestational diabetes Current Visit: No Status: Acute Code(s): O24.419 - GESTATIONAL DIABETES MELLITUS IN , UNSP CONTROL SNOMED Code(s): 62902860
[2022-03-27 06:42] LABS: Basophils # (A) 0.1 k/uL (0-0.2); Basophils % (A) 0 %; Eosinophils # (A) 0.1 k/uL (0-0.7); Eosinophils % (A) 1 %; HCT 36.3 % (34.0-46.0); HGB 11.5 gm/dL (11.4-16.0); Hypochromasia Slight; Lymphocytes # (A) 3.3 k/uL (1.0-4.8); Lymphocytes % (A) 24 %; MCH 25.2 pg (25.0-35.0); MCHC 31.5 g/dL (31.0-37.0); Monocytes # (A) 0.6 k/uL (0-1.0); Monocytes % (A) 5 %; Neutrophils # (A) 9.3 k/uL (1.3-7.7); Neutrophils % (A) 68 %; Platelet Count 262 k/uL (150-450); RBC 4.54 m/uL (3.80-5.40); RDW 14.9 % (11.5-15.5); WBC 13.6 k/uL (3.8-10.6)
[2022-03-27 07:12] LABS: Glucose,Whole Blood 83 mg/dL (75-99)
[2022-03-27 08:07] LABS: Glucose,Whole Blood 81 mg/dL (75-99)
[2022-03-27] MEDS ORDERED: ROPIVACAINE 100 MG, fentaNYL (PF). 200 MCG in SODIUM CHLORIDE 0.9% 76 ML EPIDURAL ONE (08:24)
[2022-03-27 09:00] LABS: Glucose,Whole Blood 83 mg/dL (75-99)
[2022-03-27 10:06] LABS: Glucose,Whole Blood 75 mg/dL (75-99)
[2022-03-27 11:03] LABS: Glucose,Whole Blood 72 mg/dL (75-99)
[2022-03-27 11:34] LABS: Glucose,Whole Blood 71 mg/dL (75-99)
[2022-03-27] MEDS ORDERED: diphenhydrAMINE 50 MG/ML 1 ML VIAL IVP PRN (12:29)
[2022-03-27] MEDS ORDERED: ZOLPIDEM 5 MG TAB PO PRN (12:29)
[2022-03-27] MEDS ORDERED: bisacodyL 10 MG SUPP RECTAL PRN (12:29)
[2022-03-27] MEDS ORDERED: BENZOCAINE/MENTHOL SPRAY 1 GM/SPRAY AEROSOL TOPICAL PRN (12:29)
[2022-03-27] MEDS ORDERED: LANOLIN CREAM 5 GM TUBE TOPICAL PRN (12:29)
[2022-03-27] MEDS ORDERED: SIMETHICONE 80 MG CHEWABLE PO PRN (12:29)
[2022-03-27] MEDS ORDERED: diphenhydrAMINE 25 MG CAP PO PRN (12:29)
[2022-03-27] MEDS ORDERED: HYDROCORTISONE 2.5% RECTAL CREAM 30 GM TUBE RECTAL PRN (12:29)
--- NOTE | 2022-03-27 12:41 | P.PROBDLV ---
Vaginal Delivery Note - . Vaginal Delivery Note: Normal vaginal delivery viable male infant Apgars 9 and 9 delivery time is 1223 hrs. Please see dictated H&P for intimate details of this patient's admission. In brief summary this is a pleasant 31-year-old 2 para 1 female 39-3/7 weeks gestation who is admitted to labor and delivery for induction of labor secondary to insulin-dependent gestational diabetes. Patient is admitted she is 3-4 cm dilated is artificial rupture membranes for light meconium fluid. Labor is induced with Pitocin per protocol. Labor progresses quickly and she does get an epidural for pain control. She does have an episode of bradycardia which resolves with position changes and disc continuing her Pitocin. She thereafter quickly gets to complete pushes the head to the perineum. Posterior perineum was supported and we have controlled delivery of the infant's head over the intact perineum. Mouth and nares are bulb suctioned. There is no evidence of a nuchal cord. Infant's head is straight occiput anterior presentation. With gentle downward traction we then have deliver the anterior and posterior shoulder and rest this 's body. This is a vigorous viable male infant Apgars are 9 and 9 delivery time is 1223 hrs. After delivery of the the umbilical cord is doubly clamped and cut immediately due to history of jaundice with her first baby. The placenta is then spontaneously delivered intact. Inspection of perineum shows a first-degree laceration is repaired with 3-0 Vicryl in the usual fashion. Excellent reapproximation is noted. Estimated blood loss is 100 mL. There are no complications. and mother are stable delivery room.
[2022-03-27] MEDS: SENNOSIDES-DOCUSATE SODIUM 1 EACH TAB PO SCH ×2 (13:11→20:01)
[2022-03-27] MEDS: IBUPROFEN 600 MG TAB PO PRN ×2 (13:22→21:34)
[2022-03-27] MEDS: ACETAMINOPHEN TAB 325 MG TAB PO PRN (20:01)
[2022-03-28] MEDS: ACETAMINOPHEN TAB 325 MG TAB PO PRN ×2 (04:09→16:12)
[2022-03-28] MEDS: IBUPROFEN 600 MG TAB PO PRN ×2 (05:22→12:56)
--- NOTE | 2022-03-28 06:31 | P.PNOBGVD ---
Subjective - Subjective Patient reports: Reports appetite normal, Reports voiding normally, Reports pain well controlled, Reports ambulating normally : doing well Objective - Latest Vital Signs Latest vital signs: Vital Signs Temp Pulse Resp BP Pulse Ox 03/28/22 04:00 97.6 F 84 14 105/68 97 03/28/22 00:00 97.6 F 79 16 123/78 99 03/27/22 20:00 97.8 F 86 16 129/84 98 03/27/22 15:00 97.2 F L 99 18 129/61 03/27/22 14:40 95 132/63 03/27/22 14:10 96.9 F L 87 18 121/61 03/27/22 13:40 91 126/60 03/27/22 13:25 97.7 F 93 18 136/64 03/27/22 13:10 97.9 F 91 18 142/68 03/27/22 12:55 98.0 F 99 18 141/67 03/27/22 12:40 97.9 F 97 18 138/73 Intake and Output 03/27/22 03/27/22 03/28/22 14:59 22:59 06:59 Intake Total 229.5 Output Total 475 Balance 229.5 -475 Intake: Intake, IV Titration 229.5 Amount Oxytocin 30 Units/500 ml 229.5 Ns 30 unit In Saline 1 500ml.bag @ Per Protocol IV .[facility] Rx#:[id number] Output: Estimated Blood Loss 150 Output, Quantitative 325 Blood Loss Other: # Voids 1 - Exam Lungs: bilateral: normal Chest: Normal S1, Normal S2 Extremities: Present: normal Abdomen: Present: normal appearance, soft Uterus: Present: normal, firm - Labs Labs: Abnormal Lab Results - Last 24 Hours (Table) 03/27/22 03/27/22 03/27/22 Range/Units 06:00 11:01 11:33 WBC 13.6 H (3.8-10.6) k/uL Neutrophils # 9.3 H (1.3-7.7) k/uL POC Glucose (mg/dL) 72 L 71 L (75-99) mg/dL Assessment and Plan Assessment: day #1. Patient is resting without complaints and wishes to go home. Vital signs are stable she is afebrile. Uterus is firm nontender she is having normal lochia. My impression is a normal course. Plan is to continue routine care and discharge home later today (1) 39 weeks gestation of Current Visit: Yes Status: Acute Code(s): Z3A.39 - 39 WEEKS GESTATION OF SNOMED Code(s): 64249501 (2) Gestational diabetes Current Visit: No Status: Acute Code(s): O24.419 - GESTATIONAL DIABETES MELLITUS IN , UNSP CONTROL SNOMED Code(s): 70960327
--- NOTE | 2022-03-28 06:35 | P.DS ---
Providers Date of admission: 03/27/22 05:50 Expected date of discharge: 03/28/22 Attending physician: Chidi Taylor Primary care physician: Trinh Alanis - Discharge Diagnosis(es) (1) 39 weeks gestation of Current Visit: Yes Status: Acute (2) Gestational diabetes Current Visit: No Status: Acute Hospital Course: Please see dictated H&P for intimate details of this patient's admission. In brief summary this is a pleasant 31-year-old 2 para 1 female 39-3/7 weeks who is admitted to labor and delivery for induction secondary to insulin- dependent gestational diabetes. Patient is admitted she is uncomplicated induction of labor was on have a vaginal delivery viable male infant. The see dictated delivery note. day #1 patient wishes to go home felt to be stable for discharge home follow up with me in 6 weeks. Procedures: Induction of labor and normal vaginal delivery Patient Condition at Discharge: Good Plan - Discharge Summary New Discharge Prescriptions: New Ibuprofen [Motrin] 600 mg PO Q6HR PRN #30 tab PRN Reason: Mild Pain (Scale 1 To 3) No Action 78/Iron/Folate 1/Dha [Prenate Dha Softgel] 1 each PO DAILY Insulin Detemir (Levemir) [Levemir] 65 units SQ DAILY Aspirin [Adult Low Dose Aspirin EC] 1 tab PO DAILY Sertraline [Zoloft] 1 tab PO DAILY Insulin Regular, Human [Novolin R Flexpen] 25 units SQ DAILY Discharge Medication List 78/Iron/Folate 1/Dha [Prenate Dha Softgel] 1 each PO DAILY 05/07/20 [History] Insulin Detemir (Levemir) [Levemir] 65 units SQ DAILY 06/09/20 [History] Aspirin [Adult Low Dose Aspirin EC] 1 tab PO DAILY 03/27/22 [History] Insulin Regular, Human [Novolin R Flexpen] 25 units SQ DAILY 03/27/22 [History] Sertraline [Zoloft] 1 tab PO DAILY 03/27/22 [History] Ibuprofen [Motrin] 600 mg PO Q6HR PRN #30 tab 03/28/22 [Rx] Follow up Appointment(s)/Referral(s): Chidi Taylor MD [STAFF PHYSICIAN] - 05/09/22 11:15 am Patient Instructions/Handouts: Vaginal Delivery (DC) Activity/Diet/Wound Care/Special Instructions: No intercourse or anything per vagina for 6 weeks. Please call if any fever, chills, excessive vaginal bleeding, and/or abdominal pain Discharge Disposition: HOME SELF-CARE
[2022-03-28] MEDS: SENNOSIDES-DOCUSATE SODIUM 1 EACH TAB PO SCH (07:36)
[2022-03-28 07:44] VITALS: RESP 16
[2022-03-28 08:02] LABS: Basophils # (A) 0.1 k/uL (0-0.2); Basophils % (A) 0 %; Eosinophils # (A) 0.1 k/uL (0-0.7); Eosinophils % (A) 1 %; HCT 33.2 % (34.0-46.0); HGB 10.3 gm/dL (11.4-16.0); Hypochromasia Moderate; Lymphocytes # (A) 2.7 k/uL (1.0-4.8); Lymphocytes % (A) 19 %; MCH 25.4 pg (25.0-35.0); Mean Platelet Volume 9.1; Monocytes # (A) 0.7 k/uL (0-1.0); Monocytes % (A) 5 %; Neutrophils # (A) 10.9 k/uL (1.3-7.7); Neutrophils % (A) 74 %; Platelet Count 236 k/uL (150-450); RBC 4.05 m/uL (3.80-5.40); RDW 15.2 % (11.5-15.5); WBC 14.8 k/uL (3.8-10.6)
[2022-03-28 17:17] VITALS: BP 124/80; PULSE 80; TEMP 98.1
== END 2022-03-28 19:45 | disposition home or self-care (01) | DRG 807 ==
LOC: 4FBP 05:50
PROVIDERS: ADMIT Obstetrics & Gynecology; ATTEND Obstetrics & Gynecology
PROC: 10E0XZZ Delivery of Products of Conception, External Approach (ICD-10-PCS; principal; 2022-03-27)
PROC: 0HQ9XZZ Repair Perineum Skin, External Approach (ICD-10-PCS; 2022-03-27)
PROC: 4A0HXCZ Measurement of Products of Conception, Cardiac Rate, External Approach (ICD-10-PCS; 2022-03-27)
PROC: 10907ZC Drainage of Amniotic Fluid, Therapeutic from Products of Conception, Via Natural or Artificial Opening (ICD-10-PCS; 2022-03-27)
PROC: 3E033VJ Introduction of Other Hormone into Peripheral Vein, Percutaneous Approach (ICD-10-PCS; 2022-03-27)
DX: O24.424 Gestational diabetes mellitus in childbirth, insulin controlled (principal); Z37.0 Single live birth; O70.0 First degree perineal laceration during delivery; O76 Abnormality in fetal heart rate and rhythm complicating labor and delivery; O77.0 Labor and delivery complicated by meconium in amniotic fluid; Z3A.39 39 weeks gestation of pregnancy; Z79.82 Long term (current) use of aspirin; Z90.49 Acquired absence of other specified parts of digestive tract; Z82.49 Family history of ischemic heart disease and other diseases of the circulatory system
CPT/HCPCS: 85025; 86850; 86900; 86901; 88307

== ENCOUNTER 2025-04-27 12:02 | Emergency (ER) | payer BC ==
--- NOTE | 2025-04-27 12:30 | ED ---
Female Urogenital HPI - General Chief complaint: Vaginal Bleeding Stated complaint: Vaginal bleeding(5 weeks preg) Time Seen by Provider: 04/27/25 12:30 Source: patient Mode of arrival: ambulatory Limitations: no limitations - History of Present Illness Initial comments: 34-year-old G3, female presented the ER for evaluation of vaginal b leeding. Patient states she is approximately 5 weeks 4 days with her last menstrual cycle starting on 03/19/25. Patient reports approximately 1 hour prior to arrival she noticed a small amount of bright red vaginal bleeding after urination. Patient denies vaginal clots. Patient reports a pressure suprapubic abdominal discomfort stating it feels like she has to "go to the bathroom". She denies any fevers, chills, dysuria, diarrhea or constipation. Patient does admit to nausea but states this is typical for her pregnancies. She has yet to follow-up with [facility]. She has seen Dr. Taylor in the past. Patient denies any chest pain, shortness of breath, dizziness or lightheadedness. - Related Data Home Medications Medication Instructions Recorded Confirmed Sertraline [Zoloft] 1 tab PO HS 03/27/22 11/18/24 Control 1 dose PO HS 11/11/24 11/18/24 Cholecalciferol [Vitamin D3 (25 1 dose PO HS 11/11/24 11/18/24 Mcg = 1000 Iu)] Ibuprofen [Motrin] 600 mg PO Q6HR PRN 11/11/24 11/18/24 Pantoprazole Sodium [Protonix] 20 mg PO HS 11/11/24 11/18/24 lisinopriL [Zestril] 5 mg PO HS 11/11/24 11/18/24 Allergies Allergy/AdvReac Type Severity Reaction Status Date / Time adhesive AdvReac Mild skin Verified 04/27/25 12:09 irritation Review of Systems ROS Statement: Those systems with pertinent positive or pertinent negative responses have been documented in the HPI. ROS Other: All systems not noted in ROS Statement are negative. Past Medical History Past Medical History: GERD/Reflux, Hypertension Additional Past Medical History / Comment(s): Gestational diabetes-resolved. /delivery vaginal X2 History of Any Multi-Drug Resistant Organisms: None Reported Past Surgical History: Cholecystectomy Additional Past Surgical History / Comment(s): previous colonoscopy 2009 Past Anesthesia/Blood Transfusion Reactions: No Reported Reaction Additional Past Anesthesia/Blood Transfusion Reaction / Comment(s): no hx of blood transfusion Past Psychological History: Anxiety, Depression Smoking Status: Never smoker Past Alcohol Use History: None Reported Past Drug Use History: None Reported - Past Family History Father Family Medical History: Cancer, Coronary Artery Disease (CAD), Hypertension Additional Family Medical History / Comment(s): Esophageal Cancer Mother Family Medical History: Hypertension Sister(s) Family Medical History: Thyroid Disorder Additional Family Medical History / Comment(s): hypothyroid General Exam Limitations: no limitations General appearance: alert, in no apparent distress Respiratory exam: Present: normal lung sounds bilaterally. Absent: respiratory distress, wheezes, rales, rhonchi, stridor Cardiovascular Exam: Present: regular rate, normal rhythm, normal heart sounds. Absent: systolic murmur, diastolic murmur, rubs, gallop, clicks GI/Abdominal exam: Present: soft, normal bowel sounds. Absent: distended, tenderness, guarding, rebound, rigid Extremities exam: Present: normal inspection, full ROM, normal capillary refill. Absent: tenderness, pedal edema, joint swelling, calf tenderness Neurological exam: Present: alert, oriented X3, CN II-XII intact Skin exam: Present: warm, dry, intact, normal color. Absent: rash Course Vital Signs 04/27/25 04/27/25 12:07 14:41 Temperature 97.9 F 98.2 F Pulse Rate 110 H 98 Respiratory 20 18 Rate Blood Pressure 143/88 132/78 O2 Sat by Pulse 99 99 Oximetry Medical Decision Making - Medical Decision Making Was pt. sent in by a medical professional or institution (, PA, MANAGER CUSTOMER SERVICE, urgent care, hospital, or senior care...) When possible be specific @ -No Did you speak to anyone other than the patient for history (EMS, parent, family, police, friend...)? What history was obtained from this source @ -No Did you review nursing and triage notes (agree or disagree)? Why? @ -I reviewed and agree with nursing and triage notes Were old charts reviewed (outside hosp., previous admission, EMS record, old EKG, old radiological studies, urgent care reports/EKG's, senior care records)? Report findings @ -No old charts were reviewed Differential Diagnosis (chest pain, altered mental status, abdominal pain women, abdominal pain men, vaginal bleeding, weakness, fever, dyspnea, syncope, headache, dizziness, GI bleed, back pain, seizure, CVA, palpatations, mental health, musculoskeletal)? @ -Differential Vaginal Bleeding:Spontaneous , threatened , molar , ectopic , bloody show, incompetent cervix, abruptioplacenta, placenta previa, uterine rupture, dysfunctional uterine bleeding, hemorrhage, uterine fibroids, this is not meant to be an all-inclusive list. EKG interpreted by me (3pts min.). @ -None done X-rays interpreted by me (1pt min.). @ -None done CT interpreted by me (1pt min.). @ -None done U/S interpreted by me (1pt. min.). @ - US showing a small anechoic intrauterine cystic structure without evidence of yolk sac or pole at this time. What testing was considered but not performed or refused? (CT, X-rays, U/S, labs)? Why? @ -None What meds were considered but not given or refused? Why? @ -RhoGAM considered however patient is blood type A+ it is not indicated. Did you discuss the management of the patient with other professionals (pro fessionals i.e. , PA, MANAGER CUSTOMER SERVICE, lab, RT, psych nurse, social insurance specialist, loan inspector, teacher, tactical response group officer, showcase maker)? Give summary @ -No Was smoking cessation discussed for >3mins.? @ -No Was critical care preformed (if so, how long)? @ -No Were there social determinants of health that impacted care today? How? (Homelessness, low income, unemployed, alcoholism, drug addiction, transportation, low edu. Level, literacy, decrease access to med. care, long-term, rehab)? @ -No Was there de-escalation of care discussed even if they declined (Discuss DNR or withdrawal of care, Hospice)? DNR status @ -No What co-morbidities impacted this encounter? (DM, HTN, Smoking, COPD, CAD, Cancer, CVA, ARF, Chemo, Hep., AIDS, mental health diagnosis, sleep apnea, morbid obesity)? @ - Was patient admitted / discharged? Hospital course, mention meds given and route, prescriptions, significant lab abnormalities, going to OR and other pertinent info. @ -Discharge. 34-year-old female presented the ER for evaluation of vaginal bleeding. Patient is approximately 5 weeks gestation. Vital signs stable. Upon my evaluation patient no signs acute distress nontoxic-appearing. Laboratory studies obtained remarkable for WBC 11.1, stable hemoglobin of 13.9. Beta-hCG 8452.2. Urine with small blood likely contaminated from vaginal bleeding. No evidence of UTI. ultrasound showing a small anechoic intrauterine cystic structure without evidence of yolk sac or pole gestational sac measuring 5 weeks 3 days. Blood type A+, RhoGAM not indicated. Patient educated on today's findings. I instructed her to have beta hCG redrawn in 48 hours to trend, prescription provided at discharge. recommended. Advised close follow-up with [facility], referral given. Strict ret urn parameters discussed. Patient discharged stable condition. Patient verbally expressed understanding and agreement with care plan. Case discussed with ED attending, Dr. Lr. Undiagnosed new problem with uncertain prognosis? @ -No Drug Therapy requiring intensive monitoring for toxicity (Heparin, Nitro, Insulin, Cardizem)? @ -No Were any procedures done? @ -No Diagnosis/symptom? @ -Vaginal bleeding in Acute, or Chronic, or Acute on Chronic? @ -Acute Uncomplicated (without systemic symptoms) or Complicated (systemic symptoms)? @ -Uncomplicated Side effects of treatment? @ -No Exacerbation, Progression, or Severe Exacerbation? @ -No Poses a threat to life or bodily function? How? (Chest pain, [place], [place], pneumonia, PE, COPD, DKA, ARF, appy, cholecystitis, CVA, Diverticulitis, Homicidal, Suicidal, threat to staff... and all critical care pts) @ -No - Lab Data Result diagrams: 04/27/25 12:41 04/27/25 12:41 Lab Results 04/27/25 04/27/25 04/27/25 Range/Units 12:41 12:41 12:41 WBC 11.14 H (4.50-10.00) 10*3/uL RBC 4.98 (4.10-5.20) 10*6/uL Hgb 13.9 (12.0-15.0) g/dL Hct 40.9 (37.2-46.3) % MCV 82.1 (80.0-97.0) fL MCH 27.9 (27.0-32.0) pg MCHC 34.0 (32.0-37.0) g/dL Plt Count 307 (140-440) 10*3/uL MPV 10.1 (9.5-12.2) fL Immature Gran % (Auto) 0.3 % Neutrophils % 62.0 % Lymphocytes % 29.3 % Monocytes % 6.6 % Eosinophils % 1.4 % Basophils % 0.4 % Immature Gran # 0.03 (0.00-0.04) 10*3/uL Neutrophils # 6.91 (1.80-7.70) 10*3/uL Lymphocytes # 3.26 (0.90-5.00) 10*3/uL Monocytes # 0.74 (0.20-1.00) 10*3/uL Eosinophils # 0.16 (0.04-0.35) 10*3/uL Basophils # 0.04 (0.00-0.10) 10*3/uL Sodium 138 (137-145) mmol/L Potassium 3.8 (3.5-5.1) mmol/L Chloride 103 (98-107) mmol/L Carbon Dioxide 21 L (22-30) mmol/L Anion Gap 14 mmol/L BUN 16 (7-17) mg/dL Creatinine 0.65 (0.52-1.04) mg/dL Est GFR (CKD-EPI)AfAm >90 (>60 ml/min/1.73 sqM) Est GFR (CKD-EPI)NonAf >90 (>60 ml/min/1.73 sqM) Glucose 100 H (74-99) mg/dL Calcium 9.4 (8.4-10.2) mg/dL Total Bilirubin 0.5 (0.2-1.3) mg/dL AST 22 (14-36) U/L ALT 16 (4-34) U/L Alkaline Phosphatase 116 (38-126) U/L Total Protein 8.1 (6.3-8.2) g/dL Albumin 4.7 (3.5-5.0) g/dL HCG, Quant 8454.2 mIU/mL Urine Color Colorless Urine Appearance Clear (Clear) Urine pH 5.5 (5.0-8.0) Ur Specific [place] 1.003 (1.001-1.035) Urine Protein Negative (Negative) Urine Glucose (UA) Negative (Negative) Urine Ketones Negative (Negative) Urine Blood Small H (Negative) Urine Nitrite Negative (Negative) Urine Bilirubin Negative (Negative) Urine Urobilinogen <2.0 (<2.0) mg/dL Ur Leukocyte Esterase Negative (Negative) Urine RBC 1 (0-5) /hpf Urine WBC 1 (0-5) /hpf Ur Squamous Epith Cells <1 (0-4) /hpf Urine Bacteria Rare H (None) /hpf Blood Type Blood Type Recheck Bld Type Recheck Status 04/27/25 Range/Units 12:41 WBC (4.50-10.00) 10*3/uL RBC (4.10-5.20) 10*6/uL Hgb (12.0-15.0) g/dL Hct (37.2-46.3) % MCV (80.0-97.0) fL MCH (27.0-32.0) pg MCHC (32.0-37.0) g/dL Plt Count (140-440) 10*3/uL MPV (9.5-12.2) fL Immature Gran % (Auto) % Neutrophils % % Lymphocytes % % Monocytes % % Eosinophils % % Basophils % % Immature Gran # (0.00-0.04) 10*3/uL Neutrophils # (1.80-7.70) 10*3/uL Lymphocytes # (0.90-5.00) 10*3/uL Monocytes # (0.20-1.00) 10*3/uL Eosinophils # (0.04-0.35) 10*3/uL Basophils # (0.00-0.10) 10*3/uL Sodium (137-145) mmol/L Potassium (3.5-5.1) mmol/L Chloride (98-107) mmol/L Carbon Dioxide (22-30) mmol/L Anion Gap mmol/L BUN (7-17) mg/dL Creatinine (0.52-1.04) mg/dL Est GFR (CKD-EPI)AfAm (>60 ml/min/1.73 sqM) Est GFR (CKD-EPI)NonAf (>60 ml/min/1.73 sqM) Glucose (74-99) mg/dL Calcium (8.4-10.2) mg/dL Total Bilirubin (0.2-1.3) mg/dL AST (14-36) U/L ALT (4-34) U/L Alkaline Phosphatase (38-126) U/L Total Protein (6.3-8.2) g/dL Albumin (3.5-5.0) g/dL HCG, Quant mIU/mL Urine Color Urine Appearance (Clear) Urine pH (5.0-8.0) Ur Specific [place] (1.001-1.035) Urine Protein (Negative) Urine Glucose (UA) (Negative) Urine Ketones (Negative) Urine Blood (Negative) Urine Nitrite (Negative) Urine Bilirubin (Negative) Urine Urobilinogen (<2.0) mg/dL Ur Leukocyte Esterase (Negative) Urine RBC (0-5) /hpf Urine WBC (0-5) /hpf Ur Squamous Epith Cells (0-4) /hpf Urine Bacteria (None) /hpf Blood Type A Positive Blood Type Recheck A Pos Bld Type Recheck Status No - Radiology Data Radiology results: report reviewed, image reviewed Disposition Clinical Impression: Vaginal bleeding in Disposition: HOME SELF-CARE Condition: Stable Instructions (If sedation given, give patient instructions): Threatened Miscarriage (ED) Additional Instructions: Have repeat blood draw in 48 hours. Follow-up closely with [facility] for reevaluation. Return to the ER for any new or worsening concerns. Is patient prescribed a controlled substance at d/c from ED?: No Referrals: Trinh Alanis DO [Primary Care Provider] - 1-2 days Kandi Welch DO [Doctor of Osteopathic Medicine] - 1-2 days Time of Disposition: 14:31
[2025-04-27 12:47] LABS: Basophils # (A) 0.04 10*3/uL (0.00-0.10); Basophils % (A) 0.4 %; Eosinophils # (A) 0.16 10*3/uL (0.04-0.35); Eosinophils % (A) 1.4 %; HCT 40.9 % (37.2-46.3); HGB 13.9 g/dL (12.0-15.0); Lymphocytes # (A) 3.26 10*3/uL (0.90-5.00); Lymphocytes % (A) 29.3 %; MCH 27.9 pg (27.0-32.0); MCHC 34.0 g/dL (32.0-37.0); MCV 82.1 fL (80.0-97.0); Monocytes # (A) 0.74 10*3/uL (0.20-1.00); Monocytes % (A) 6.6 %; Neutrophils # (A) 6.91 10*3/uL (1.80-7.70); Neutrophils % (A) 62.0 %; Platelet Count 307 10*3/uL (140-440); RBC 4.98 10*6/uL (4.10-5.20); RDW 13.0 % (11.5-14.5); WBC 11.14 10*3/uL (4.50-10.00)
[2025-04-27 12:50] LABS: Bacteria,Urine Rare /hpf; Bilirubin,Urine Negative (Negative); Blood,Urine Small (Negative); Color,Urine Colorless; Glucose,Urine (UA) Negative (Negative); Ketones,Urine Negative (Negative); Leukocyte Esterase,Urine Negative (Negative); Nitrite,Urine Negative (Negative); PH, Urine 5.5 (5.0-8.0); Protein,Urine Negative (Negative); RBC,Urine 1 /hpf (0-5); Specific Gravity,Urine 1.003 (1.001-1.035); Squamous Epithelial Cell,Urine <1 /hpf (0-4); Urobilinogen,Urine <2.0 mg/dL (<2.0); WBC,Urine 1 /hpf (0-5)
[2025-04-27 12:57] LABS: ALT 16 U/L (4-34); AST 22 U/L (14-36); African American GFR (CKD) >90 (>60 ml/min/1.73 sqM); Albumin 4.7 g/dL (3.5-5.0); Alkaline Phosphatase 116 U/L (38-126); Anion Gap 14 mmol/L; Blood Urea Nitrogen 16 mg/dL (7-17); Calcium 9.4 mg/dL (8.4-10.2); Carbon Dioxide 21 mmol/L (22-30); Chloride 103 mmol/L (98-107); Glucose 100 mg/dL (74-99); Non-African American GFR(CKD) >90 (>60 ml/min/1.73 sqM); Potassium 3.8 mmol/L (3.5-5.1); Sodium 138 mmol/L (137-145); Total Protein 8.1 g/dL (6.3-8.2)
[2025-04-27 13:14] LABS: HCG,Quantitative Serum 8454.2 mIU/mL
--- NOTE | 2025-04-27 14:06 | US ---
EXAMINATION TYPE: Transabdominal DATE OF EXAM: 04/27/2025 1:40 PM COMPARISON: NONE CLINICAL INDICATION: Female, 34 years old with history of vaginal bleeding in preg; Light bleeding wh en patient wiped. TECHNIQUE: Transabdominal (TA) with grayscale and color Doppler imaging including first trimester pre gnancy. FINDINGS: EXAM MEASUREMENTS: GESTATIONAL AGE / DATING Physician Established: Not yet established Dates by LMP: Unknown Dates by First Scan: No previous this is first scan Dates by Current Scan for: (5 weeks/3 days) EDC: 12/25/2025 MATERNAL ANATOMY Uterus: 8.3 x 4.3 x 5.0 cm Right Ovary: 2.8 x 2.0 x 2.0 cm Left Ovary: 3.7 x 2.3 x 2.5 cm Post CDS / Adnexa: wnl Presence of free fluid: No Presence of corpus luteal cyst: Yes, seen on left ovary measuring 1.3 x 1.1 x 1.3 cm Presence of subchorionic bleed: No GESTATION / SURVEY CRL: Too early Gestational Sac morphology: Normal Gestational Sac MSD: 0.8 cm (5 weeks/3 days) Yolk Sac (normal less than 6mm): Not seen IUP: Gestational sac seen in uterine fundus Date of LMP: Unknown Beta HcG (if available): 8,500 IMPRESSION: Small anechoic intrauterine cystic structure without evidence for yolk sac or pole at this time . This is thought to represent an early gestational sac with a positive beta hCG of mIU/mL, however e ctopic and abnormal intrauterine cannot be ruled out based on this exam alone. Fo llow-up with pelvic ultrasound in 7-10 days and serial beta-hCG studies are recommended to en sure fu rther development of the fetus. [facility], , 04/27/2025 2:04 PM
[2025-04-27 14:43] VITALS: BP 132/78; PULSE 98; RESP 18; TEMP 98.2
== END 2025-04-27 14:43 | disposition home or self-care (01) ==
LOC: EC 12:02
DX: O20.9 Hemorrhage in early pregnancy, unspecified (principal); Z91.048 Other nonmedicinal substance allergy status; Z3A.01 Less than 8 weeks gestation of pregnancy
CPT/HCPCS: 36415; 76801; 76817; 80053; 81001; 84702; 85025; 86900; 86901; 99284

== ENCOUNTER → 2025-04-29 | Outpatient (CLI) | payer BC | END | disposition home or self-care (01) | LOC: LABWHC1 07:43 | PROVIDERS: ATTEND Technician/Technologist | DX: O20.0 Threatened abortion (principal) | CPT/HCPCS: 36415; 84702 ==